=== PATIENT | female | born 1960 | race Caucasian/White ===

== ENCOUNTER → 2018-01-28 | Outpatient (CLI) | payer BC ==
[~2018-01-28] MED LIST: ACE3 PO; ALB18R INH; ALBU8.5H IH; ASPI-757 PO; BISA-229 PO; CEPH500T7 PO; CINN500C12 PO; ESCI20TA8 PO; FURO40TA35 PO; HYDR-4228 PO; IRON18TA2 PO; LISI2.5T60 PO; METF-421 PO; MONT10TA PO; OLOOD OD; OXYGENHOME INH; PANT40TA65 PO; PARO-243 PO; POTA-23 PO; POTA99TA10 PO; TRAZ-156 PO; VITA-175 PO; [UNRECOGNIZED DRUG - OTHER] IV
[2018-01-28 15:41] LABS: PLATELET COUNT, AUTOMATED 297 K/uL (150-450)
== END ==
LOC: LAB 15:21
PROVIDERS: ATTEND Physician Assistant
DX: D75.1 Secondary polycythemia (principal)
CPT/HCPCS: 36415; 85025